=== PATIENT | female | born 1960 | race American Indian/Alaskan Native ===

== ENCOUNTER 2017-06-12 05:46 | Emergency (ER) | payer MEDICAID ==
--- NOTE | 2017-06-12 08:04 | Emergency Department Report ---
ED Psych HPI - General Chief Complaint: Psych Stated Complaint: SUICIDAL THOUGHTS,MH EVAL Time Seen by Provider: 06/12/17 08:02 Source: patient, RN notes reviewed Limitations: No Limitations - History of Present Illness Initial Comments: This is a 56-year-old female, her primary care doctor is Dr. Mccullough Patient presents to the ER with a complaint of suicidality. She was torn to traffic or kill herself. She denies overdose. Denies headache, neck pain, chest pain, abdominal pain, shortness of breath, urinary symptoms. MD Complaint: suicidal ideation, feels depressed -: Gradual Associated Psychiatric Symptoms: none History of same: Yes Quality: constant Improves With: none Worsens With: none Associated Symptoms: denies other symptoms If Self Harm: admits thoughts of, has plan - Related Data Home Medications Medication Instructions Recorded Confirmed Last Taken Flovent 220 MCG/PUFF HFA 220 inh INHALATION DAILY 06/12/17 06/12/17 Unknown ISOSORBIDE MONOnitrate 30 mg PO DAILY 06/12/17 06/12/17 Unknown Prozac 30 mg PO DAILY 06/12/17 06/12/17 Unknown carBAMazepine [TEGretol] 400 mg PO BID 06/12/17 06/12/17 Unknown traZODone 50 mg PO HS 06/12/17 06/12/17 Unknown Allergies Allergy/AdvReac Type Severity Reaction Status Date / Time No Known Allergies Allergy Unverified 01/06/16 09:44 ED Review of Systems ROS: Stated complaint: SUICIDAL THOUGHTS,MH EVAL Other details as noted in HPI Constitutional: denies: fever Eyes: denies: vision change ENT: denies: epistaxis Respiratory: denies: cough Cardiovascular: denies: chest pain Gastrointestinal: denies: abdominal pain Genitourinary: denies: dysuria Psychiatric: suicidal thoughts ED Past Medical Hx - Medications Home Medications: Home Medications Medication Instructions Recorded Confirmed Last Taken Type Flovent 220 MCG/PUFF HFA 220 inh INHALATION DAILY 06/12/17 06/12/17 Unknown History ISOSORBIDE MONOnitrate 30 mg PO DAILY 06/12/17 06/12/17 Unknown History Prozac 30 mg PO DAILY 06/12/17 06/12/17 Unknown History carBAMazepine [TEGretol] 400 mg PO BID 06/12/17 06/12/17 Unknown History traZODone 50 mg PO HS 06/12/17 06/12/17 Unknown History ED Physical Exam - General General appearance: alert, in no apparent distress - Head Head exam: Present: atraumatic, normocephalic - Eye Eye exam: Present: normal appearance, PERRL, EOMI, other (visual acuity intact to finger counting, color perception, reading at a close distance). Absent: nystagmus - ENT ENT exam: Present: normal exam, normal orophraynx, mucous membranes moist, normal external ear exam - Neck Neck exam: Present: normal inspection, full ROM - Respiratory Respiratory exam: Present: normal lung sounds bilaterally. Absent: respiratory distress - Cardiovascular Cardiovascular Exam: Present: regular rate, normal rhythm, normal heart sounds. Absent: systolic murmur, diastolic murmur, rubs, gallop - GI/Abdominal GI/Abdominal exam: Present: soft, normal bowel sounds. Absent: distended, tenderness, guarding, rebound, rigid, pulsatile mass - Extremities Exam Extremities exam: Present: normal inspection, full ROM, normal capillary refill. Absent: pedal edema, joint swelling, calf tenderness - Back Exam Back exam: Present: normal inspection, full ROM. Absent: tenderness, CVA tenderness (R), paraspinal tenderness, vertebral tenderness - Neurological Exam Neurological exam: Present: alert, oriented X3, CN II-XII intact, normal gait. Absent: motor sensory deficit - Psychiatric Psychiatric exam: Present: suicidal ideation. Absent: homicidal ideation - Skin Skin exam: Present: warm, dry, intact, normal color. Absent: rash ED Course Vital Signs 06/12/17 06/12/17 08:09 11:12 Temperature 98.2 F Pulse Rate 87 Respiratory 16 18 Rate Blood Pressure 138/80 O2 Sat by Pulse 97 98 Oximetry ED Medical Decision Making - Lab Data Result diagrams: 06/12/17 08:13 06/12/17 08:13 Vital Signs 06/12/17 08:09 Temperature 98.2 F Pulse Rate 87 Respiratory 16 Rate Blood Pressure 138/80 O2 Sat by Pulse 97 Oximetry Lab Results 06/12/17 06/12/17 06/12/17 Range/Units 08:13 08:13 08:13 WBC 12.4 H (4.5-11.0) K/mm3 RBC 4.00 (3.65-5.03) M/mm3 Hgb 12.2 (10.1-14.3) gm/dl Hct 36.8 (30.3-42.9) % MCV 92 (79-97) fl MCH 31 (28-32) pg MCHC 33 (30-34) % RDW 13.7 (13.2-15.2) % Plt Count 189 (140-440) K/mm3 Sodium 142 (137-145) mmol/L Potassium 3.9 (3.6-5.0) mmol/L Chloride 106.0 (98-107) mmol/L Carbon Dioxide 20 L (22-30) mmol/L Anion Gap 20 mmol/L BUN 13 (7-17) mg/dL Creatinine 0.8 (0.7-1.2) mg/dL Estimated GFR > 60 ml/min BUN/Creatinine Ratio 16 % Glucose 68 (65-100) mg/dL Calcium 9.1 (8.4-10.2) mg/dL Total Creatine Kinase 141 H (30-135) units/L Urine Color (Yellow) Urine Turbidity (Clear) Urine pH (5.0-7.0) Ur Specific [place] (1.003-1.030) Urine Protein (Negative) mg/dL Urine Glucose (UA) (Negative) mg/dL Urine Ketones (Negative) mg/dL Urine Blood (Negative) Urine Nitrite (Negative) Urine Bilirubin (Negative) Urine Urobilinogen (<2.0) mg/dL Ur Leukocyte Esterase (Negative) Urine WBC (Auto) (0.0-6.0) /HPF Urine RBC (Auto) (0.0-6.0) /HPF U Epithel Cells (Auto) (0-13.0) /HPF Urine Bacteria (Auto) (Negative) /HPF Urine Mucus /HPF Salicylates < 0.3 L (2.8-20.0) mg/dL Urine Opiates Screen Urine Methadone Screen Acetaminophen (10.0-30.0) ug/mL Ur Barbiturates Screen Ur Phencyclidine Scrn Ur Amphetamines Screen U Benzodiazepines Scrn Urine Cocaine Screen U Marijuana (THC) Screen Drugs of Abuse Note Plasma/Serum Alcohol (0-0.07) gm% 06/12/17 06/12/17 06/12/17 Range/Units 08:13 08:13 Unknown WBC (4.5-11.0) K/mm3 RBC (3.65-5.03) M/mm3 Hgb (10.1-14.3) gm/dl Hct (30.3-42.9) % MCV (79-97) fl MCH (28-32) pg MCHC (30-34) % RDW (13.2-15.2) % Plt Count (140-440) K/mm3 Sodium (137-145) mmol/L Potassium (3.6-5.0) mmol/L Chloride (98-107) mmol/L Carbon Dioxide (22-30) mmol/L Anion Gap mmol/L BUN (7-17) mg/dL Creatinine (0.7-1.2) mg/dL Estimated GFR ml/min BUN/Creatinine Ratio % Glucose (65-100) mg/dL Calcium (8.4-10.2) mg/dL Total Creatine Kinase (30-135) units/L Urine Color Yellow (Yellow) Urine Turbidity Hazy (Clear) Urine pH 5.0 (5.0-7.0) Ur Specific [place] 1.014 (1.003-1.030) Urine Protein <15 mg/dl (Negative) mg/dL Urine Glucose (UA) Neg (Negative) mg/dL Urine Ketones Neg (Negative) mg/dL Urine Blood Sm (Negative) Urine Nitrite Pos (Negative) Urine Bilirubin Neg (Negative) Urine Urobilinogen 2.0 (<2.0) mg/dL Ur Leukocyte Esterase Mod (Negative) Urine WBC (Auto) 31.0 H (0.0-6.0) /HPF Urine RBC (Auto) 1.0 (0.0-6.0) /HPF U Epithel Cells (Auto) 1.0 (0-13.0) /HPF Urine Bacteria (Auto) 1+ (Negative) /HPF Urine Mucus Few /HPF Salicylates (2.8-20.0) mg/dL Urine Opiates Screen Urine Methadone Screen Acetaminophen < 15.0 (10.0-30.0) ug/mL Ur Barbiturates Screen Ur Phencyclidine Scrn Ur Amphetamines Screen U Benzodiazepines Scrn Urine Cocaine Screen U Marijuana (THC) Screen Drugs of Abuse Note Plasma/Serum Alcohol < 0.01 (0-0.07) gm% 06/12/17 Range/Units Unknown WBC (4.5-11.0) K/mm3 RBC (3.65-5.03) M/mm3 Hgb (10.1-14.3) gm/dl Hct (30.3-42.9) % MCV (79-97) fl MCH (28-32) pg MCHC (30-34) % RDW (13.2-15.2) % Plt Count (140-440) K/mm3 Sodium (137-145) mmol/L Potassium (3.6-5.0) mmol/L Chloride (98-107) mmol/L Carbon Dioxide (22-30) mmol/L Anion Gap mmol/L BUN (7-17) mg/dL Creatinine (0.7-1.2) mg/dL Estimated GFR ml/min BUN/Creatinine Ratio % Glucose (65-100) mg/dL Calcium (8.4-10.2) mg/dL Total Creatine Kinase (30-135) units/L Urine Color (Yellow) Urine Turbidity (Clear) Urine pH (5.0-7.0) Ur Specific [place] (1.003-1.030) Urine Protein (Negative) mg/dL Urine Glucose (UA) (Negative) mg/dL Urine Ketones (Negative) mg/dL Urine Blood (Negative) Urine Nitrite (Negative) Urine Bilirubin (Negative) Urine Urobilinogen (<2.0) mg/dL Ur Leukocyte Esterase (Negative) Urine WBC (Auto) (0.0-6.0) /HPF Urine RBC (Auto) (0.0-6.0) /HPF U Epithel Cells (Auto) (0-13.0) /HPF Urine Bacteria (Auto) (Negative) /HPF Urine Mucus /HPF Salicylates (2.8-20.0) mg/dL Urine Opiates Screen Presumptive negative Urine Methadone Screen Presumptive negative Acetaminophen (10.0-30.0) ug/mL Ur Barbiturates Screen Presumptive negative Ur Phencyclidine Scrn Presumptive negative Ur Amphetamines Screen Presumptive negative U Benzodiazepines Scrn Presumptive negative Urine Cocaine Screen Presumptive positive U Marijuana (THC) Screen Presumptive negative Drugs of Abuse Note Disclamer Plasma/Serum Alcohol (0-0.07) gm% - Medical Decision Making Differential diagnosis, including but not limited to: Medical clearance for psychiatric placement, depression, overdose Assessment and plan: 56-year-old female who was suicidal with plan, has an unremarkable physical exam, neuro exam unremarkable and within normal limits, laboratory studies reviewed and are appreciated, may have a urinary tract infection, does not appear to be toxic, she will be given Macrobid, and her outpatient medications will be continued. This point in time, there does not appear to be in immediate medical complication to psychiatric admission, evaluation and consultation, requests he was informed. Critical care attestation.: If time is entered above; I have spent that time in minutes in the direct care of this critically ill patient, excluding procedure time. ED Disposition Clinical Impression: Medical clearance for psychiatric admission Disposition: DC/TX-65 PSY HOSP/PSY UNIT Is pt being admited?: No Does the pt Need Aspirin: No Condition: Good Referrals: PRIMARY CARE, [Primary Care Provider] - 3-5 Days
[2017-06-12 08:53] LABS: Hematocrit 36.8 % (30.3-42.9); Hemoglobin 12.2 gm/dl (10.1-14.3); Mean Corpuscular HGB Conc 33 % (30-34); Mean Corpuscular Hemoglobin 31 pg (28-32); Mean Corpuscular Volume 92 fl (79-97); Red Cell Distribution Width 13.7 % (13.2-15.2)
[2017-06-12 09:06] LABS: BUN/Creatinine Ratio 16; Blood Urea Nitrogen 13 mg/dL (7-17); Calcium 9.1 mg/dL (8.4-10.2); Hemolysis Index 26
[2017-06-12 10:03] LABS: Platelet Count 189 K/mm3 (140-440)
[2017-06-12 10:11] LABS: Bacteria,Urine 1+ /HPF (Negative); Bilirubin,Urine NEG (Negative); Blood,Urine SM (Negative); Color,Urine Yellow (Yellow); Mucus,Urine FEW /HPF; Nitrite,Urine POS (Negative); Protein,Urine <15 mg/dL mg/dL (Negative)
[2017-06-12 10:20] LABS: Amphetamine Screen,Urine PRESUMPTIVE NEGATIVE; Benzodiazepines Screen,Urine PRESUMPTIVE NEGATIVE; Cannabinoid Screen,Urine PRESUMPTIVE NEGATIVE; Methadone Screen,Urine PRESUMPTIVE NEGATIVE; Opiate Screen,Urine PRESUMPTIVE NEGATIVE
[2017-06-12 10:32] LABS: Cocaine Screen,Urine PRESUMPTIVE POSITIVE
[2017-06-12] MEDS ORDERED: ZOFRAN ODT PO PRN (11:52)
[2017-06-12] MEDS ORDERED: PROAIR IH PRN (11:52)
[2017-06-12] MEDS ORDERED: HALDOL IM PRN (11:52)
[2017-06-12] MEDS ORDERED: ATIVAN IM PRN (11:52)
[2017-06-12] MEDS ORDERED: FLOVENT INHALATION SCH (12:00)
[2017-06-12] MEDS: MACROBID PO SCH ×2 (18:13→22:10)
[2017-06-12] MEDS: PROzac PO SCH ×2 (18:14→18:17)
[2017-06-12] MEDS: IMDUR PO SCH (18:16)
[2017-06-12] MEDS: TYLENOL PO PRN ×2 (18:25→22:05)
[2017-06-12] MEDS: PULMICORT IH SCH (20:22)
[2017-06-12] MEDS ORDERED: NON-FORMULARY (Trazodone 50 MG) PO SCH (22:00)
[2017-06-12] MEDS: DESYREL PO SCH (22:10)
[2017-06-13] MEDS: TYLENOL PO PRN ×2 (04:45→22:54)
[2017-06-13] MEDS: PULMICORT IH SCH ×2 (08:48→22:38)
[2017-06-13] MEDS: PROzac PO SCH ×2 (10:16)
[2017-06-13] MEDS: IMDUR PO SCH (10:16)
[2017-06-13] MEDS: MACROBID PO SCH ×2 (10:16→22:53)
[2017-06-13] MEDS: DESYREL PO SCH (22:53)
[2017-06-14] MEDS: PULMICORT IH SCH (10:01)
--- NOTE | 2017-06-14 12:37 | Consultation ---
History of Present Illness - Reason for Consult Consult date: 06/14/17 Reason for consult: Mental Health Evaluation Requesting physician: BRITTNEE TENA - Chief Complaint Chief complaint: "I don't want to kill myself' - History of Present Psychiatric Illness 56 y.o. AA female presenting to [facility] for SI's with a plan. Today patient is calm and cooperative during the assessment. She stated that she was thinking about how "bad' her life is, so she decided to kill herself prior to coming to the hospital. She would not say how she would kill herself when asked. She stated that she was in a coma and experienced a stroke in 1995. She stated these things has caused her to be "depressed" because she cannot take care of herself like she would like. She stated that she have a home care service ([facility] ) come to her home 7 days a week to help her out. She stated prior to her admission, she used cocaine and was drinking alcohol to self medicate (her first time). She stated that her current medications (Trazodone/Prozac) isn't "working." She denies SI/HI's and AVH's. She denies any manic episodes. She admitted to erratic sleep the last 3 days. Medications and Allergies Allergies Allergy/AdvReac Type Severity Reaction Status Date / Time No Known Allergies Allergy Unverified 01/06/16 09:44 Home Medications Medication Instructions Recorded Confirmed Last Taken Type Flovent 220 MCG/PUFF HFA 220 inh INHALATION DAILY 06/12/17 06/12/17 Unknown History ISOSORBIDE MONOnitrate 30 mg PO DAILY 06/12/17 06/12/17 Unknown History Prozac 30 mg PO DAILY 06/12/17 06/12/17 Unknown History carBAMazepine [TEGretol] 400 mg PO BID 06/12/17 06/12/17 Unknown History traZODone 50 mg PO HS 06/12/17 06/12/17 Unknown History Active Meds: Active Medications Acetaminophen (Tylenol) 650 mg PO Q6HR PRN PRN Reason: Pain Last Admin: 06/13/17 22:54 Dose: 650 mg Albuterol (Proair) 2 puff IH Q4HRT PRN PRN Reason: Shortness Of Breath Budesonide (Pulmicort) 0.5 mg IH Q12HRT SARAH Last Admin: 06/14/17 10:01 Dose: 0.5 mg Carbamazepine (Tegretol) 400 mg PO BID [facility] Last Admin: 06/13/17 22:53 Dose: 400 mg Fluoxetine HCl (Prozac) 10 mg PO QDAY [facility] Last Admin: 06/13/17 10:16 Dose: 10 mg Fluoxetine HCl (Prozac) 20 mg PO QDAY [facility] Last Admin: 06/13/17 10:16 Dose: 20 mg Haloperidol Lactate (Haldol) 5 mg IM Q6HR PRN PRN Reason: Agitation Isosorbide Mononitrate (Imdur) 30 mg PO DAILY [facility] Last Admin: 06/13/17 10:16 Dose: Not Given Lorazepam (Ativan) 2 mg IM Q4HR PRN PRN Reason: Agitation Nitrofurantoin Macrocrystals (Macrobid) 100 mg PO BID [facility] Stop: 06/18/17 22:01 Last Admin: 06/13/17 22:53 Dose: 100 mg Ondansetron HCl (Zofran Odt) 4 mg PO Q6HR PRN PRN Reason: Nausea Trazodone HCl (Desyrel) 50 mg PO QHS [facility] Last Admin: 06/13/17 22:53 Dose: 50 mg Mental Status Exam - Vital signs Last Vital Signs Temp 98.5 F 06/13/17 20:00 Pulse 75 06/14/17 10:12 Resp 18 06/14/17 10:12 BP 122/69 06/13/17 20:00 Pulse Ox 99 06/13/17 21:16 - Exam Narrative exam: MSE: Appearance: calm, cooperative Behavior: good eye contact Speech: regular rate and tone Mood: "okay" Affect: congruent to mood Thought Process: circumstantial Thought Content: denies SI/HI's and AVH's Motor Activity: ambulatory Cognition: A/O x3 Insight: variable Judgment: variable Results Result Diagrams: 06/12/17 08:13 06/12/17 08:13 All other labs normal. Assessment and Plan Assessment and plan: Impression: MDD, Severe Type recurrent. Today patient is calm and cooperative during the assessment. Patient positive for cocaine. DDx: R/O Bipolar DO, R/O Substance Induced Mood DO Recommendation/Plan: Continue 1013 with placement to [facility] today.
[2017-06-14] MEDS: IMDUR PO SCH (14:47)
[2017-06-14] MEDS: PROzac PO SCH ×2 (14:48→14:49)
[2017-06-14] MEDS: MACROBID PO SCH (14:48)
[2017-06-14 14:50] VITALS: BP 134/72
== END 2017-06-14 17:35 ==
LOC: EEVIPCON 05:46 → ED 05:46
DX: R45.851 Suicidal ideations (principal)
CPT/HCPCS: 36415; 80048; 80307; 81001; 82550; 85027; 94640; 99285; G0480; 80320

== ENCOUNTER 2018-06-21 10:11 | Outpatient (CLI) | payer MEDICAID ==
[2018-06-21 10:52] LABS: Blood Urea Nitrogen 17 mg/dL (7-17)
--- NOTE | 2018-06-22 08:10 | Magnetic Resonance Report ---
MRI LUMBAR SPINE WITH AND WITHOUT CONTRAST HISTORY: Low back pain. TECHNIQUE: axial T1, T2. sagittal T1,T2, STIR. Post contrast T1 fat sat and axial and sagittal planes. COMPARISON: None at this facility. FINDINGS: The conus terminates at T12. No signal abnormality or mass. The cauda equina is within normal limits. 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 The posterior elements are in appropriate relationship. Moderate multilevel hypertrophic facet arthropathy is identified. Mild diffuse thickening of the ligamentum flavum. There is normal height and alignment of the lumbar vertebral bodies. No evidence for fracture, bone lesion or abnormal enhancement following IV contrast. Mild diffuse disc desiccation is evident. There is moderate disc space narrowing at L5-S1. L1-2: No significant abnormality. L2-3: No significant abnormality. L3-4: No significant abnormality with the disc. Moderate facet arthropathy and mild hypertrophy of the ligamentum flavum are identified. No central canal narrowing. Bilateral neural foraminal narrowing is less than 25%. L4-5: A mild diffuse posterior bulging disc is identified. Moderate hypertrophic facet arthropathy and moderate thickening of the ligamentum flavum is evident. This results in mild central canal stenosis measuring 8-9 mm in AP dimension. There is moderate bilateral neural foraminal narrowing estimated at 50-75%. L5-S1: Moderate disc space narrowing and mild diffuse posterior bulging disc is identified. Mild facet arthropathy. Bilateral neuroforaminal narrowing is estimated at 50%. IMPRESSION: [id number] lumbar spondylosis as outlined above. L4-5 appears to be the most affected level. No evidence for fracture, malalignment or enhancing bone lesion.
== END 2018-06-21 10:12 | disposition home or self-care (01) ==
LOC: MRI 10:11
PROVIDERS: ATTEND General Practice
DX: M47.896 Other spondylosis, lumbar region (principal); M48.07 Spinal stenosis, lumbosacral region; M51.27 Other intervertebral disc displacement, lumbosacral region
CPT/HCPCS: 36415; 72158; 82565; 84520; A9577

== ENCOUNTER 2018-08-02 12:59 | Outpatient (CLI) | payer MEDICAID ==
--- NOTE | 2018-08-02 19:57 | Cat Scan Report ---
FINAL REPORT EXAM: CT LUMBAR SPINE WO CON HISTORY: LOW BACK PAIN TECHNIQUE: CT lumbar spine without contrast. Study performed with multiplanar reconstructions PRIORS: None. FINDINGS: There is disc space narrowing and vacuum disc at L5-S1. Facet joint arthropathy present from L3-L4 through L5-S1 At L3-L4 through L5-S1 this results in moderate central canal stenosis most prominent at L4-5. Neural foraminal narrowing is most prominent bilaterally at L5-S1 due to bony encroachment and probable bul ging disc. Vertebral bodies are normal in height and alignment. Spinous processes and transverse processes are i ntact. IMPRESSION: Degenerative disc disease L5-S1 Facet joint arthropathy lower lumbar spine L3-L4 through L5-S1 with areas of moderate canal stenosis. Bilateral neural foraminal stenosis at L5-S1
== END 2018-08-02 13:00 | disposition home or self-care (01) ==
LOC: CT 12:59
PROVIDERS: ATTEND General Practice
DX: M51.37 Other intervertebral disc degeneration, lumbosacral region (principal); M48.07 Spinal stenosis, lumbosacral region; M46.86 Other specified inflammatory spondylopathies, lumbar region; Z87.891 Personal history of nicotine dependence
CPT/HCPCS: 72131

== ENCOUNTER 2018-12-21 13:27 | Emergency (ER) | payer MEDICAID ==
--- NOTE | 2018-12-21 13:47 | Emergency Department Report ---
Blank Doc - Documentation Documentation: This is a 58-year-old female that presents with a "knot" to left upper breast area. This initial assessment/diagnostic orders/clinical plan/treatment(s) is/are subject to change based on patient's health status, clinical progression and re- assessment by fellow clinical providers in the ED. Further treatment and workup at subsequent clinical providers discretion. Patient/guardians urged not to elope from the ED as their condition may be serious if not clinically assessed and managed. Initial orders include: 1- Patient sent to [facility] for further evaluation and treatment
[2018-12-21 13:51] VITALS: BP 112/67
--- NOTE | 2018-12-21 15:03 | Emergency Department Report ---
- General Chief complaint: Skin/Abscess/Foreign Body Stated complaint: PT FEEL KNOT IN CHEST Time Seen by Provider: 12/21/18 13:46 Source: patient Mode of arrival: Ambulatory Limitations: No Limitations - History of Present Illness Initial comments: 58-year-old Eliza female presents to the emergency room for stating she has a knot to her left upper chest that's been there for 4 days. Patient reports mild pain. Patient denies any other concerns no fever no chills or nausea no vomiting no redness or swelling to the area. Onset/Timin -: days(s) Location: chest Severity: mild Severity scale (0 -10): 1 Quality: aching Consistency: intermittent Worsens with: palpation Associated symptoms: denies other symptoms - Related Data Home Medications Medication Instructions Recorded Confirmed Last Taken Flovent 220 MCG/PUFF HFA 220 inh INHALATION DAILY 06/12/17 06/12/17 Unknown ISOSORBIDE MONOnitrate 30 mg PO DAILY 06/12/17 06/12/17 Unknown Prozac 30 mg PO DAILY 06/12/17 06/12/17 Unknown carBAMazepine [TEGretol] 400 mg PO BID 06/12/17 06/12/17 Unknown traZODone 50 mg PO HS 06/12/17 06/12/17 Unknown Allergies Allergy/AdvReac Type Severity Reaction Status Date / Time No Known Allergies Allergy Unverified 01/06/16 09:44 Abscess Boil HPI - HPI Chief Complaint: Skin/Abscess/Foreign Body Stated Complaint: PT FEEL KNOT IN CHEST Time Seen by Provider: 12/21/18 13:46 Home Medications: Home Medications Medication Instructions Recorded Confirmed Last Taken Flovent 220 MCG/PUFF HFA 220 inh INHALATION DAILY 06/12/17 06/12/17 Unknown ISOSORBIDE MONOnitrate 30 mg PO DAILY 06/12/17 06/12/17 Unknown Prozac 30 mg PO DAILY 06/12/17 06/12/17 Unknown carBAMazepine [TEGretol] 400 mg PO BID 06/12/17 06/12/17 Unknown traZODone 50 mg PO HS 06/12/17 06/12/17 Unknown Allergies/Adverse Reactions: Allergies Allergy/AdvReac Type Severity Reaction Status Date / Time No Known Allergies Allergy Unverified 01/06/16 09:44 ED Review of Systems ROS: Stated complaint: PT FEEL KNOT IN CHEST Other details as noted in HPI ED Past Medical Hx - Past Medical History Previous Medical History?: Yes Hx Diabetes: Yes Hx Arthritis: Yes Hx COPD: Yes - Social History Smoking Status: Former Smoker Substance Use Type: None - Medications Home Medications: Home Medications Medication Instructions Recorded Confirmed Last Taken Type Flovent 220 MCG/PUFF HFA 220 inh INHALATION DAILY 06/12/17 06/12/17 Unknown History ISOSORBIDE MONOnitrate 30 mg PO DAILY 06/12/17 06/12/17 Unknown History Prozac 30 mg PO DAILY 06/12/17 06/12/17 Unknown History carBAMazepine [TEGretol] 400 mg PO BID 06/12/17 06/12/17 Unknown History traZODone 50 mg PO HS 06/12/17 06/12/17 Unknown History ED Physical Exam - General Limitations: No Limitations General appearance: alert, in no apparent distress - Head Head exam: Present: atraumatic, normocephalic - ENT ENT exam: Present: mucous membranes moist - Respiratory Respiratory exam: Present: other (right upper chest P size mobile nodule felt.) ED Course Vital Signs 12/21/18 13:49 Temperature 98.9 F Pulse Rate 76 Respiratory 16 Rate Blood Pressure 112/67 [Left] O2 Sat by Pulse 96 Oximetry ED Medical Decision Making - Medical Decision Making 58-year-old female comes in for complaint of a knot to her left upper chest. Knot is a pea size mobile. Critical care attestation.: If time is entered above; I have spent that time in minutes in the direct care of this critically ill patient, excluding procedure time. ED Disposition Clinical Impression: Mass of left chest wall Disposition: DC-01 TO HOME OR SELFCARE Is pt being admited?: No Does the pt Need Aspirin: No Condition: Stable Additional Instructions: Please follow up with her primary care provider to discuss and have your upper left chest not evaluated. You can take [id number] Tylenol and/or Motrin for pain management. Referrals: Your, Provider [Other] - 3-5 Days
== END 2018-12-21 15:11 | disposition home or self-care (01) ==
LOC: ED 13:27
DX: R22.2 Localized swelling, mass and lump, trunk (principal); E11.9 Type 2 diabetes mellitus without complications; M19.90 Unspecified osteoarthritis, unspecified site; J44.9 Chronic obstructive pulmonary disease, unspecified; Z87.891 Personal history of nicotine dependence; Z79.899 Other long term (current) drug therapy
CPT/HCPCS: 99282

== ENCOUNTER 2019-03-16 12:52 | Outpatient (CLI) | payer MEDICAID ==
--- NOTE | 2019-03-16 13:53 | Ultrasound Report ---
LEFT DIGITAL DIAGNOSTIC MAMMOGRAM CLINICAL: For clip placement after ultrasound guided needle biopsy. COMPARISON: [facility] mammogram and ultrasound from 01/03/2019 FINDINGS: A biopsy clip is identified at 12:00 far posterior and correlates with the biopsied lesion. IMPRESSION: Concordant clip deployment. Signer Name: Rhett Sharp MD Signed: 03/16/2019 1:49 PM Workstation Name: [id number]
--- NOTE | 2019-03-16 14:04 | Mammography Report ---
LEFT DIGITAL DIAGNOSTIC MAMMOGRAM CLINICAL: For clip placement after ultrasound guided needle biopsy. COMPARISON: [facility] mammogram and ultrasound from 01/03/2019 FINDINGS: A biopsy clip is identified far posterior at 12:00 and correlates with the biopsied lesion. IMPRESSION: Concordant clip deployment. Signer Name: Rhett Sharp MD Signed: 03/16/2019 2:00 PM Workstation Name: [id number]
== END 2019-03-16 12:53 | disposition home or self-care (01) ==
LOC: SPVWC 12:52
PROVIDERS: ATTEND Surgery
DX: N63.0 Unspecified lump in unspecified breast (principal)
CPT/HCPCS: 19083; 77065; 88305; 88312; 88342; A4648

== ENCOUNTER 2019-04-13 09:54 | Outpatient (CLI) | payer MEDICAID ==
--- NOTE | 2019-04-17 14:03 | Magnetic Resonance Report ---
BILATERAL BREAST MR WITHOUT AND WITH GADOLINIUM INDICATION: Status post recent benign biopsy of the left breast for a palpable lump which she has fe lt for 4 months. College E: Benign fibrofatty tissues with chronic inflammation and nondefinitive gra nulomata. COMPARISONS: 03/16/2019 and 01/03/2019 mammograms TECHNIQUE: Axial 1.0 mm T1 without, axial high-resolution 2.0 mm T2 and axial 1.0 mm dynamic vibrant high-resolution postcontrast T1 fat saturation sequences on a 1.5 Janae magnet. The examination was p erformed with an 8-channel dedicated [place] breast coil. Post-processing with CAD and subtraction was performed on an [employer] workstation. 19.0 cc of MultiHance was injected without incident for the c ontrast portion of the exam. Consent was obtained prior to the administration of the contrast. FINDINGS: RIGHT BREAST: Minimal background parenchymal enhancement. No mass or suspicious enhancement. No suspi cious right axillary or right internal mammary lymph nodes. LEFT BREAST: Minimal background parenchymal enhancement. A 1 cm minimally enhancing mass at 11:00 rick roximately 20 cm from the nipple corresponds to the recently biopsied lesion. It demonstrates 4 mm fo cus of central enhancement and demonstrates mixed kinetics with 89% peak enhancement, 56% type I pers istent and 44% type II plateau waveforms. No suspicious left axillary or left internal mammary lymph nodes. A few benign upper outer intramammary lymph nodes. IMPRESSION: No suspicious finding. A benign 1 cm left breast mass at 11:00 approximately 20 cm from t he nipple. Recommend routine mammographic screening. BI-RADS Category 2: Benign Signer Name: Rhett Sharp MD Signed: 04/17/2019 1:58 PM Workstation Name: [id number]
== END 2019-04-13 09:55 | disposition home or self-care (01) ==
LOC: SPVIMAG 09:54
PROVIDERS: ATTEND Surgery
DX: N63.22 Unspecified lump in the left breast, upper inner quadrant (principal); J44.9 Chronic obstructive pulmonary disease, unspecified
CPT/HCPCS: A9577; C8908; 77049

== ENCOUNTER 2019-04-19 08:39 | Outpatient (CLI) | payer MEDICAID | END 2019-04-19 08:40 | disposition home or self-care (01) | LOC: LABHHL 08:39 | PROVIDERS: ATTEND Surgery | DX: N63.0 Unspecified lump in unspecified breast (principal); M19.90 Unspecified osteoarthritis, unspecified site; J44.9 Chronic obstructive pulmonary disease, unspecified | CPT/HCPCS: 88305 ==

== ENCOUNTER 2019-04-25 13:39 | Outpatient (CLI) | payer MEDICAID ==
--- NOTE | 2019-04-25 15:16 | Mammography Report ---
LEFT DIGITAL DIAGNOSTIC MAMMOGRAM CLINICAL: For clip placement after needle biopsy. COMPARISON: 03/16/2019 FINDINGS: A second biopsy clip is identified in the upper breast adjacent to the previously identifie d clip. IMPRESSION: Concordant clip deployment. Signer Name: Rhett Sharp MD Signed: 04/25/2019 3:12 PM Workstation Name: [id number]
== END 2019-04-25 13:40 | disposition home or self-care (01) ==
LOC: SPVWC 13:39
PROVIDERS: ATTEND Surgery
DX: N63.22 Unspecified lump in the left breast, upper inner quadrant (principal); J44.9 Chronic obstructive pulmonary disease, unspecified; M19.90 Unspecified osteoarthritis, unspecified site; Z87.891 Personal history of nicotine dependence

== ENCOUNTER 2020-01-02 13:34 | Outpatient (CLI) | payer MEDICAID ==
--- NOTE | 2020-01-03 09:00 | Mammography Report ---
DIGITAL SCREENING MAMMOGRAM WITH CAD, 01/02/2020 INDICATION: Routine screening mammography. TECHNIQUE: Digital bilateral 2D mammography was obtained in the craniocaudal and mediolateral obliq ue projections. This examination was interpreted with the benefit of Computer-Aided Detection analysi s. COMPARISON: 04/25/2019, 04/13/2019, 03/16/2019 FINDINGS: Breast Density: The breasts are almost entirely fatty. There is no evidence of dominant mass, suspicious calcifications or architectural distortion in eithe r breast. Clips are seen in the 12:00 position of the posterior depth of the left breast. IMPRESSION: Follow up recommendation: Routine yearly BI-RADS Category 1: Negative. A "normal" or negative report should not discourage follow up or biopsy of a clinically significant f inding. A written summary of these findings will be mailed to the patient. The patient will be entered into a mammography reporting system which will generate a reminder letter for the patient's next appointmen t at the appropriate interval. The [employer] recommends yearly mammograms starting at age 40 and continuing as l arpan as a woman is in good health. Breast MRI is recommended for women with an approximate 20-25% or greater lifetime risk of breast cancer, including women with a strong family history of breast or ova jamison cancer or who have been treated for Hodgkin's disease. Signer Name: Dash Sam MD Signed: 01/03/2020 8:55 AM Workstation Name: [email or web address]
== END 2020-01-02 13:35 | disposition home or self-care (01) ==
LOC: SPVWC 13:34
PROVIDERS: ATTEND Surgery
DX: Z12.31 Encounter for screening mammogram for malignant neoplasm of breast (principal); N64.89 Other specified disorders of breast
CPT/HCPCS: 77067

== ENCOUNTER 2020-12-23 03:32 | Emergency (ER) | payer MEDICAID ==
--- NOTE | 2020-12-23 08:08 | Emergency Department Report ---
ED General Adult HPI - General Chief complaint: Back Pain/Injury Stated complaint: NECK/LOWER BACK PAIN PUI?: No Time Seen by Provider: 12/23/20 07:57 Source: patient, RN notes reviewed, old records reviewed Mode of arrival: Ambulatory Limitations: No Limitations - History of Present Illness Initial comments: Primary CARE doctor: Dr. Karuna Varela The patient is a 60-year-old female, with a history of COPD, not oxygen dependent, body mass index of 41, psychiatric disease, chronic pain, had CT scan, MRI at this hospital in the past, which demonstrated DJD. The patient presents to the ER today with a complaint of nontraumatic paracervical neck pain, that radiates down her back, to her paralumbar region, with involvement in the right groin. There is no fever, no vomiting, no diaphoresis, no loss of taste or smell, she completed her Covid vaccination, she has a chronic cough which is not a new, worsened or different, she denies extremity weakness/numbness, denies bladder/bowel retention and incontinence, as well as saddle anesthesia. Her pain is throbbing and aching, increases with palpation and range of motion, ambulation, and decreases with rest and position. She reports that she recently went to [facility], had a CAT scan of her abdomen pelvis which was unremarkable, and "said everything was okay", she reports being discharged with hydrocodone. The patient does not have her current pain specialist that she sees. She reports that she previously had lumbar ablation, a few years ago. She is not currently participating in physical therapy. She lives at home with a friend. There is one set of stairs. She ambulates with a cane. Her pain in the emergency room is improved with hydromorphone, acetaminophen, as well as ketorolac. She denies urinary symptoms. She denies abdominal pain. During the history and physical examination, I am chaperoned by nurse Micah Denis -: Sudden, days(s), week(s) Location: back Radiation: other (Paralumbar region, and right groin) Quality: burning, aching Consistency: constant Improves with: medication, rest Worsens with: movement - Related Data Home Medications Medication Instructions Recorded Confirmed Last Taken Flovent 220 MCG/PUFF HFA 220 inh INHALATION DAILY 06/12/17 06/12/17 Unknown ISOSORBIDE MONOnitrate 30 mg PO DAILY 06/12/17 06/12/17 Unknown Prozac 30 mg PO DAILY 06/12/17 06/12/17 Unknown carBAMazepine [TEGretol] 400 mg PO BID 06/12/17 06/12/17 Unknown traZODone 50 mg PO HS 06/12/17 06/12/17 Unknown Previous Rx's Medication Instructions Recorded Last Taken Type Acetaminophen [Non-Aspirin Extra 500 mg PO Q6HR PRN #30 tablet 12/23/20 Unknown Rx Strength] Ibuprofen [Motrin] 600 mg PO Q8H PRN #30 tablet 12/23/20 Unknown Rx Allergies Allergy/AdvReac Type Severity Reaction Status Date / Time No Known Allergies Allergy Verified 12/23/20 08:03 ED Review of Systems ROS: Stated complaint: NECK/LOWER BACK PAIN Other details as noted in HPI Constitutional: denies: fever Eyes: denies: eye discharge ENT: denies: epistaxis Respiratory: cough (Chronic cough) Cardiovascular: denies: chest pain Genitourinary: denies: dysuria Musculoskeletal: back pain, myalgia Neurological: denies: weakness Psychiatric: anxiety ED Past Medical Hx - Past Medical History Hx Hypertension: Yes Hx CVA: Yes (1995) Hx Diabetes: Yes Hx Arthritis: Yes Hx COPD: Yes - Surgical History Additional Surgical History: gallstones; ectopic - Social History Smoking Status: Former Smoker Substance Use Type: None - Medications Home Medications: Home Medications Medication Instructions Recorded Confirmed Last Taken Type Flovent 220 MCG/PUFF HFA 220 inh INHALATION DAILY 06/12/17 06/12/17 Unknown History ISOSORBIDE MONOnitrate 30 mg PO DAILY 06/12/17 06/12/17 Unknown History Prozac 30 mg PO DAILY 06/12/17 06/12/17 Unknown History carBAMazepine [TEGretol] 400 mg PO BID 06/12/17 06/12/17 Unknown History traZODone 50 mg PO HS 06/12/17 06/12/17 Unknown History Acetaminophen [Non-Aspirin Extra 500 mg PO Q6HR PRN #30 tablet 12/23/20 Unknown Rx Strength] Ibuprofen [Motrin] 600 mg PO Q8H PRN #30 tablet 12/23/20 Unknown Rx ED Physical Exam - General Limitations: No Limitations General appearance: alert, anxious, obese - Head Head exam: Present: atraumatic, normocephalic - Eye Eye exam: Present: normal appearance, EOMI. Absent: nystagmus - ENT ENT exam: Present: normal exam, normal orophraynx, mucous membranes moist, normal external ear exam - Neck Neck exam: Present: normal inspection, full ROM. Absent: tenderness, meningismus - Respiratory Respiratory exam: Present: normal lung sounds bilaterally. Absent: respiratory distress, wheezes, rales, rhonchi, stridor, decreased breath sounds - Cardiovascular Cardiovascular Exam: Present: regular rate, normal rhythm, normal heart sounds. Absent: bradycardia, tachycardia, irregular rhythm, systolic murmur, diastolic murmur, rubs, gallop - GI/Abdominal GI/Abdominal exam: Present: soft. Absent: distended, tenderness, guarding, rebound, rigid, pulsatile mass - Extremities Exam Extremities exam: Present: normal inspection, full ROM, other (2+ pulses noted in the bilateral upper and lower extremities. There is no palpable cord. negative Homans sign. Muscular compartments are soft. The pelvis is stable.). Absent: pedal edema, calf tenderness - Back Exam Back exam: Present: normal inspection. Absent: tenderness, CVA tenderness (R), CVA tenderness (L), paraspinal tenderness, vertebral tenderness - Neurological Exam Neurological exam: Present: alert, oriented X3, normal gait, reflexes normal (2+ quadriceps reflexes bilaterally. 2+ biceps reflexes bilaterally. Downgoing plantar reflexes bilaterally. Sensation intact to light touch and pinch in 4 extremities), other (No facial droop. Tongue midline. Extraocular movements intact bilaterally. Facial sensation intact to light touch in V1, V2, V3 distribution bilaterally. 5 and a 5 strength in 4 extremities. Sensation intact to light touch in 4 extremities.). Absent: motor sensory deficit - Psychiatric Psychiatric exam: Present: anxious - Skin Skin exam: Present: warm, dry, intact, normal color. Absent: rash ED Course Vital Signs 12/23/20 12/23/20 12/23/20 03:58 07:51 07:52 Temperature 99.0 F Pulse Rate 76 Respiratory 16 Rate Blood Pressure 126/78 117/77 Blood Pressure [Left] O2 Sat by Pulse 98 99 99 Oximetry 12/23/20 12/23/20 12/23/20 07:54 07:56 07:58 Temperature Pulse Rate Respiratory Rate Blood Pressure 117/77 117/77 117/77 Blood Pressure [Left] O2 Sat by Pulse 99 99 99 Oximetry 12/23/20 12/23/20 12/23/20 07:59 08:02 08:32 Temperature Pulse Rate 69 Respiratory Rate Blood Pressure 117/77 117/77 Blood Pressure [Left] O2 Sat by Pulse 98 Oximetry 12/23/20 12/23/20 12/23/20 09:00 09:30 10:00 Temperature Pulse Rate Respiratory Rate Blood Pressure 154/100 154/100 154/100 Blood Pressure [Left] O2 Sat by Pulse 100 100 100 Oximetry 12/23/20 10:21 Temperature Pulse Rate Respiratory Rate Blood Pressure Blood Pressure 154/100 [Left] O2 Sat by Pulse 100 Oximetry - Reevaluation(s) Reevaluation #1: 12/23/20 09:23 5 out of 5 strength in 4 extremities. No saddle anesthesia. No bladder or bowel retention or incontinence. Ambulatory with a steady gait. Strength, sensation, reflexes within normal limit. No pulsatile abdominal mass 12/23/20 10:30 Final reassessment. Feels improved. Patient endorses readiness for discharge. Neurovascular exam unchanged. Have reiterated outpatient discharge instructions. ED Medical Decision Making - Lab Data Vital Signs 12/23/20 12/23/20 12/23/20 03:58 07:51 07:52 Temperature 99.0 F Pulse Rate 76 Respiratory 16 Rate Blood Pressure 126/78 117/77 O2 Sat by Pulse 98 99 99 Oximetry 12/23/20 12/23/20 12/23/20 07:54 07:56 07:58 Temperature Pulse Rate Respiratory Rate Blood Pressure 117/77 117/77 117/77 O2 Sat by Pulse 99 99 99 Oximetry 12/23/20 12/23/20 07:59 08:02 Temperature Pulse Rate 69 Respiratory Rate Blood Pressure 117/77 O2 Sat by Pulse 98 Oximetry - Radiology Data Radiology results: report reviewed, image reviewed Previous MRI, CT lumbar spine reviewed and appreciated XR hip 2-3V RT INDICATION / CLINICAL INFORMATION: right groin pain. COMPARISON: None available. FINDINGS: BONES/JOINT(S): No acute fracture or subluxation. Mild bilateral hip DJD. No focal bone lesions. SOFT TISSUES: No significant abnormality. ADDITIONAL FINDINGS: None. Signer Name: Hu Henriquez MD Signed: 12/23/2020 8:51 AM Workstation Name: [id number] [facility] [address] [place] [address] Magnetic Resonance Report Signed Patient: JUAN STOUT MR#: [id number] : 1960 Acct:[id number] Age/Sex: 57 / F ADM Date: 06/21/18 Loc: MRI Attending Dr: KVNG ASHTON MD Ordering Physician: KVNG ASHTON DO Date of Service: 06/21/18 Procedure(s): MR lumbar spine wo/w con Accession Number(s): [id number] cc: KVNG ASHTON DO MRI LUMBAR SPINE WITH AND WITHOUT CONTRAST HISTORY: Low back pain. TECHNIQUE: axial T1, T2. sagittal T1,T2, STIR. Post contrast T1 fat sat and axial and sagittal planes. COMPARISON: None at this facility. FINDINGS: The conus terminates at T12. No signal abnormality or mass. The cauda equina is within normal limits. 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 The posterior elements are in appropriate relationship. Moderate multilevel hypertrophic facet arthropathy is identified. Mild diffuse thickening of the ligamentum flavum. There is normal height and alignment of the lumbar vertebral bodies. No evidence for fracture, bone lesion or abnormal enhancement following IV contrast. Mild diffuse disc desiccation is evident. There is moderate disc space narrowing at L5-S1. L1-2: No significant abnormality. L2-3: No significant abnormality. L3-4: No significant abnormality with the disc. Moderate facet arthropathy and mild hypertrophy of the ligamentum flavum are identified. No central canal narrowing. Bilateral neural foraminal narrowing is less than 25%. L4-5: A mild diffuse posterior bulging disc is identified. Moderate hypertrophic facet arthropathy and moderate thickening of the ligamentum flavum is evident. This results in mild central canal stenosis measuring 8-9 mm in AP dimension. There is moderate bilateral neural foraminal narrowing estimated at 50-75%. L5- S1: Moderate disc space narrowing and mild diffuse posterior bulging disc is france ntified. Mild facet arthropathy. Bilateral neuroforaminal narrowing is estimated at 50%. IMPRESSION: Hodk-py-kxqngbpy lumbar spondylosis as outlined above. L4-5 appears to be the most affected level. No evidence for fracture, malalignment or enhancing bone lesion. Transcribed By: TTR Dictated By: PIPE DESAI JR, MD Electronically Authenticated By: PIPE DESAI JR, MD Signed Date/Time: 06/22/18807 DD/ 1 TD/TT: 06/22/18807 [facility] [address] [id number] Cat Scan Report Signed Patient: JUAN STOUT MR#: [id number] : 1960 Acct:[id number] Age/Sex: 57 / F ADM Date: 08/02/18 Loc: CT Attending Dr: KVNG ASHTON MD Ordering Physician: KVNG ASHTON DO Date of Service: 08/02/18 Procedure(s): CT lumbar spine wo con Accession Number(s): [id number] cc: KVNG ASHTON DO FINAL REPORT EXAM: CT LUMBAR SPINE WO CON HISTORY: LOW BACK PAIN TECHNIQUE: CT lumbar spine without contrast. Study performed with multiplanar reconstructions PRIORS: None. FINDINGS: There is disc space narrowing and vacuum disc at L5-S1. Facet joint arthropathy present from L3-L4 through L5-S1 At L3-L4 through L5-S1 this results in moderate central canal stenosis most prominent at L4-5. Neural foraminal narrowing is most prominent bilaterally at L5-S1 due to bony encroachment and probable bulging disc. Vertebral bodies are normal in height and alignment. Spinous processes and transverse processes are intact. IMPRESSION: Degenerative disc disease L5-S1 Facet joint arthropathy lower lumbar spine L3-L4 through L5-S1 with areas of moderate canal stenosis. Bilateral neural foraminal stenosis at L5-S1 Transcribed By: JDK Dictated By: LESLEY CARNES MD Electronically Authenticated By: LESLEY CARNES MD Signed Date/Time: 08/02/181956 DD/ 55 TD/TT: 08/02/181955 - Medical Decision Making Differential diagnosis, including but not limited to: Musculoskeletal pain, radiculopathy, arthritis, body mass index 41, obesity, deconditioning, soft tissue injury, sprain, strain Assessment and plan: 60-year-old female, who was afebrile, with reassuring vital signs, who ambulates with a steady gait, with no focal extremity weakness or numbness, reports having had CT scan abdomen pelvis recently which was negative for acute findings, at [facility], likely presenting with exacerbation of chronic musculoskeletal pain. She denies urinary symptoms. Her pain is reproducible. She denies intravenous drug use. There is no erythema, warmth, or midline spinal tenderness on examination. She does pain that is reproducible with passive and active range of motion. Extensive discussion had with patient regarding natural history of obesity, arthritis, DJD. Would not treat with outpatient narcotics at this time. She will be given compassionate one-time hydromorphone dose while here in the emergency room, in addition to ketorolac, and acetaminophen. Counseled to consider outpatient follow-up with physical therapy, occupational therapy, pain specialist, as well as to perform weight loss. She may also benefit from complementary therapies, such as massage, acupuncture, aquatic therapy. I have discussed this plan of care with patient. She has articulated understanding. She felt improved after the aforementioned interventions On examination, the skin overlying the right groin has no redness, pus, streaking or tenderness, there are appropriate pulses in the upper and lower extremities. She ambulates with a steady gait. This is unlikely to be fracture and/or dislocation. X-ray of the hip and pelvis will be obtained. We have requested CT scan abdomen pelvis and medical records from [facility]. Critical care attestation.: If time is entered above; I have spent that time in minutes in the direct care of this critically ill patient, excluding procedure time. ED Disposition Clinical Impression: Right groin pain, Body mass index (BMI) of 40.1 to 44.9 in adult, Lumbar spondylosis Lower back pain Qualifiers: Chronicity: chronic Back pain laterality: right Sciatica presence: unspecified whether sciatica present Qualified Code(s): M54.5 - Low back pain; G89.29 - Other chronic pain Disposition: DC-01 TO HOME OR SELFCARE Is pt being admited?: No Does the pt Need Aspirin: No Condition: Good Instructions: BMI for Adults, Chronic Back Pain Additional Instructions: As we discussed, patient likely experiencing chronic musculoskeletal pain, and arthritic pain/DJD from known bony disease. Recommend that patient lose weight, exercise as tolerated, she may consider alternative/complementary therapies, such as massage, acupuncture, and/or nonweightbearing aquatic therapy. Patient may take the prescribed pain medications as needed and directed. Patient may also alternate ice packs and heat packs as needed for physical pain. We would recommend outpatient physical therapy, to improve underlying symptomatology, your primary care doctor should be able to set this up for you. Your primary care doctor can also refer you to an outpatient pain specialist. Patient may also google/look up online pain specialists in her network. The patient may also benefit from outpatient spinal/neurosurgical consultation, Dr. Rascon is a local neurosurgeon. Please return to the emergency room right away with new pain, worsened pain, migration of pain, projectile vomiting, change in mental status, confusion, inability tolerate liquid feeds, extremity weakness, bladder or bowel retention/incontinence, anesthesia over the rectum/genitals, or any new, worsened or different symptoms not present on the initial ER evaluation. Prescriptions: Ibuprofen [Motrin] 600 mg PO Q8H PRN #30 tablet PRN Reason: Pain Acetaminophen [Non-Aspirin Extra Strength] 500 mg PO Q6HR PRN #30 tablet PRN Reason: Pain , Severe (7-10) Referrals: IVETT OCASIO MD [Primary Care Provider] - 3-5 Days JEAN PAUL RASCON II, MD [Staff Physician] - 3-5 Days
[2020-12-23] MEDS ORDERED: KETOROLAC 30 MG/1 ML INJ IM ONE (08:39)
[2020-12-23] MEDS ORDERED: HYDROmorphone 1 MG/1 ML INJ IM ONE (08:39)
[2020-12-23] MEDS ORDERED: ACETAMINOPHEN 500 MG TAB PO ONE (08:39)
--- NOTE | 2020-12-23 09:55 | XRay Report ---
XR hip 2-3V RT INDICATION / CLINICAL INFORMATION: right groin pain. COMPARISON: None available. FINDINGS: BONES/JOINT(S): No acute fracture or subluxation. Mild bilateral hip DJD. No focal bone lesions. SOFT TISSUES: No significant abnormality. ADDITIONAL FINDINGS: None. Signer Name: Hu Henriquez MD Signed: 12/23/2020 9:51 AM Workstation Name: [id number]
[2020-12-23 10:21] VITALS: BP 154/100
== END 2020-12-23 11:15 | disposition home or self-care (01) ==
LOC: ED 03:32
DX: R10.31 Right lower quadrant pain (principal); M47.896 Other spondylosis, lumbar region; M54.5 Low back pain; I10 Essential (primary) hypertension; E11.8 Type 2 diabetes mellitus with unspecified complications; M19.90 Unspecified osteoarthritis, unspecified site; J44.9 Chronic obstructive pulmonary disease, unspecified; Z98.890 Other specified postprocedural states
CPT/HCPCS: 73502; 96372; 99284; J1170; J1885; 99283

== ENCOUNTER 2021-02-05 12:53 | Outpatient (CLI) | payer MEDICAID ==
--- NOTE | 2021-02-05 16:45 | Magnetic Resonance Report ---
MRI CERVICAL SPINE WITHOUT CONTRAST INDICATION / CLINICAL INFORMATION: CERVICALGIA, RT SHOULDER & NECK PAIN, DDD. TECHNIQUE: Multisequence, multiplanar images of the cervical spine were obtained. COMPARISON: None available. FINDINGS: CRANIOCERVICAL JUNCTION:No significant abnormality. ALIGNMENT: No significant abnormality. VERTEBRAE:Normal marrow signal and vertebral body height for age. VISUALIZED SPINAL CORD: No significant abnormality. [id number]-[id number] ANALYSIS: C2-3: No significant disc abnormality, spinal canal stenosis, or neural foraminal stenosis. C3-4: No significant disc abnormality, spinal canal stenosis, or neural foraminal stenosis. C4-5: No significant disc abnormality, spinal canal stenosis, or neural foraminal stenosis. C5-6: No significant disc abnormality, spinal canal stenosis, or neural foraminal stenosis. C6-7: No significant disc abnormality, spinal canal stenosis, or neural foraminal stenosis. C7-T1: No significant disc abnormality, spinal canal stenosis, or neural foraminal stenosis. PARASPINAL SOFT TISSUES: No significant abnormality. ADDITIONAL FINDINGS: None. IMPRESSION: No focal disc herniation, spinal canal stenosis or nerve root compression. Signer Name: Irene Kiran MD Signed: 02/05/2021 4:40 PM Workstation Name: [email or web address]
== END 2021-02-05 12:54 | disposition home or self-care (01) ==
LOC: MRI 12:53
PROVIDERS: ATTEND Physical Medicine & Rehabilitation
DX: M54.2 Cervicalgia (principal)
CPT/HCPCS: 72141

== ENCOUNTER 2021-06-24 13:02 | Outpatient (CLI) | payer MEDICAID ==
--- NOTE | 2021-06-24 15:30 | XRay Report ---
XR shoulder 2+V LT INDICATION / CLINICAL INFORMATION: PAIN IN BOTH SHOULDERS. COMPARISON: None available. FINDINGS: BONES/JOINT(S): No acute fracture or subluxation. Mild DJD in the glenohumeral joint. SOFT TISSUES: No significant abnormality. ADDITIONAL FINDINGS: None. Signer Name: Hu Henriquez MD Signed: 06/24/2021 3:24 PM Workstation Name: [id number]
--- NOTE | 2021-06-24 15:31 | XRay Report ---
XR shoulder 2+V RT INDICATION / CLINICAL INFORMATION: PAIN IN BOTH SHOULDERS. COMPARISON: None available. FINDINGS: BONES/JOINT(S): No acute fracture or subluxation. Mild DJD in the glenohumeral joint and AC joint. SOFT TISSUES: No significant abnormality. ADDITIONAL FINDINGS: None. Signer Name: Hu Henriquez MD Signed: 06/24/2021 3:24 PM Workstation Name: [id number]
== END 2021-06-24 13:03 | disposition home or self-care (01) ==
LOC: XRAY 13:02
PROVIDERS: ATTEND Physical Medicine & Rehabilitation
DX: M19.012 Primary osteoarthritis, left shoulder (principal); M19.011 Primary osteoarthritis, right shoulder

== ENCOUNTER 2021-12-10 06:36 | Emergency (ER) | payer MEDICAID ==
[2021-12-10 07:33] VITALS: BP 114/84
[2021-12-10] MEDS ORDERED: oxyCODONE /ACETAMINOPHEN 5-325MG TAB PO ONE (07:51)
--- NOTE | 2021-12-10 08:24 | XRay Report ---
RIGHT FOOT 3 VIEW(S) INDICATION / CLINICAL INFORMATION: fall, foot pain COMPARISON: None available. FINDINGS: BONES / JOINT(S): There is a essentially nondisplaced fracture of the proximal aspect of the second m etatarsal. There is mild cortical irregularity in the proximal aspects of the third and fourth metata rsals do not see a definite fracture on these radiographs in this location. Prior bunionectomy right great toe is noted. There is slight narrowing of the great toe MTP joint. There is mild degenerative change in the tarsal metatarsal joints. There is subjective osteopenia. There is a screw-plate device in the distal fibula. SOFT TISSUES: No significant abnormality. ADDITIONAL FINDINGS: None. Signer Name: Juan Kulkarni MD Signed: 12/10/2021 8:20 AM Workstation Name: [id number]
--- NOTE | 2021-12-10 10:39 | Cat Scan Report ---
CT HEAD/BRAIN WO CON INDICATION / CLINICAL INFORMATION: 61 years Female; fall, head injury. TECHNIQUE: Routine CT head without contrast. All CT scans at this location are performed using CT dos e reduction for ALARA by means of automated exposure control. COMPARISON: None. FINDINGS: BRAIN / INTRACRANIAL CONTENTS: No acute hemorrhage, mass effect, midline shift, hydrocephalus, or acu te, large territorial infarct. Mild cerebral and cerebellar atrophy. There are mild areas of decreased attenuation in the white matter of the cerebral hemispheres. These are nonspecific findings and may be related to microangiopathy (hypertension, diabetes, atheroscleros is), given the patient's age. It might be difficult to evaluate for small areas of ischemia without d iffusion imaging by MRI. CRANIOCERVICAL JUNCTION: No significant abnormality. ORBITS: No significant abnormality of visualized orbits. SINUSES / MASTOIDS: Visualized paranasal sinuses and mastoid air cells are essentially clear. ADDITIONAL FINDINGS: There appears to be anterior dislocation at both temporomandibular joints. No as sociated fracture is appreciated. The chronicity of this is unclear. Please correlate with the patie nt. IMPRESSION: 1. No acute intracranial abnormality. 2. Mild volume loss and chronic white matter changes. 3. Question anterior dislocation at both TMJs. See above. Signer Name: Davidson Swanson Jr, MD Signed: 12/10/2021 10:35 AM Workstation Name: [id number]
--- NOTE | 2021-12-10 10:43 | Cat Scan Report ---
CT CERVICAL SPINE WITHOUT CONTRAST INDICATION: fall, neck pain. TECHNIQUE: Axial imaging performed through the cervical spine without the use of contrast. Sagittal and coronal reconstructed images were also reviewed. All CT scans at this location are performed us ing CT dose reduction for ALARA by means of automated exposure control. COMPARISON: None FINDINGS: Alignment: Spinal alignment is normal. Bones: There is no acute osseous abnormality. Mild discogenic DJD is identified at C4-5 and C5-6. T he remaining levels are within normal limits. The facet joints are unremarkable. Soft tissues: No acute or significant incidental soft tissue abnormality. IMPRESSION: No acute abnormality. Mild degenerative changes at C4-5 and C5-6. Signer Name: Davidson Swanson Jr, MD Signed: 12/10/2021 10:39 AM Workstation Name: [id number]
--- NOTE | 2021-12-10 11:07 | Emergency Department Report ---
ED Fall HPI - General Chief Complaint: Fall Stated Complaint: RIGHT ANKLE PAIN Time Seen by Provider: 12/10/21 07:32 Source: patient Mode of arrival: Stretcher - History of Present Illness Initial Comments: 61-year-old black female presents to the emergency department for evaluation after a fall. She states that she tripped while attempting to walk to the bathroom this morning in the dark. She denies loss of consciousness but states that she did hit her head and neck and twisted her right foot. She presents with headache, neck pain, and right foot pain. -: Sudden, This morning Fall From: standing When Fall Occurred: 1-3 hours [employer] Fall Witnessed: no Place Fall Occurred: home Loss of Consciousness: none Prolonged Down Time?: no Symptoms Prior to Fall: none Location: head, neck Location - Extremities: Right: Foot Severity: severe Severity scale (0 -10): 10 Quality: aching Context: tripped/slipped Associated Symptoms: headache, neck pain, unable to walk. denies: numbness, weakness, chest paint, shortness of breath, hematuria, lightheaded, vertigo, confusion - Related Data Home Medications Medication Instructions Recorded Confirmed Last Taken Flovent 220 MCG/PUFF HFA 220 inh INHALATION DAILY 06/12/17 12/10/21 Unknown ISOSORBIDE MONOnitrate 30 mg PO DAILY 06/12/17 12/10/21 Unknown Prozac 20 mg PO QDAY 06/12/17 12/10/21 Unknown carBAMazepine [TEGretol] 400 mg PO BID 06/12/17 12/10/21 Unknown Previous Rx's Medication Instructions Recorded Last Taken Type Acetaminophen/Codeine [Tylenol 1 tab PO Q6H PRN #12 tab 12/10/21 Unknown Rx /Codeine # 3 tab] Cyclobenzaprine [Flexeril] 10 mg PO TID PRN #30 tab 12/10/21 Unknown Rx Naproxen [Naprosyn] 500 mg PO BID 7 Days #14 tab 12/10/21 Unknown Rx Allergies Allergy/AdvReac Type Severity Reaction Status Date / Time No Known Allergies Allergy Verified 12/10/21 07:26 ED Review of Systems ROS: Stated complaint: RIGHT ANKLE PAIN Other details as noted in HPI Comment: All other systems reviewed and negative Constitutional: denies: chills, fever Eyes: denies: eye discharge, vision change ENT: denies: hearing loss, congestion Respiratory: denies: cough, shortness of breath, SOB with exertion, SOB at rest Cardiovascular: denies: chest pain, palpitations Gastrointestinal: denies: abdominal pain, nausea, vomiting Genitourinary: denies: urgency, dysuria Musculoskeletal: denies: back pain Skin: denies: rash, lesions Neurological: denies: headache, weakness ED Past Medical Hx - Past Medical History Hx Hypertension: Yes Hx CVA: Yes (1995) Hx Diabetes: Yes Hx Arthritis: Yes Hx COPD: Yes - Surgical History Additional Surgical History: gallstones; ectopic - Social History Smoking Status: Former Smoker Substance Use Type: None - Medications Home Medications: Home Medications Medication Instructions Recorded Confirmed Last Taken Type Flovent 220 MCG/PUFF HFA 220 inh INHALATION DAILY 06/12/17 12/10/21 Unknown History ISOSORBIDE MONOnitrate 30 mg PO DAILY 06/12/17 12/10/21 Unknown History Prozac 20 mg PO QDAY 06/12/17 12/10/21 Unknown History carBAMazepine [TEGretol] 400 mg PO BID 06/12/17 12/10/21 Unknown History Acetaminophen/Codeine [Tylenol 1 tab PO Q6H PRN #12 tab 12/10/21 Unknown Rx /Codeine # 3 tab] Cyclobenzaprine [Flexeril] 10 mg PO TID PRN #30 tab 12/10/21 Unknown Rx Naproxen [Naprosyn] 500 mg PO BID 7 Days #14 tab 12/10/21 Unknown Rx ED Physical Exam - General Limitations: No Limitations General appearance: alert, in no apparent distress - Head Head exam: Present: atraumatic, normocephalic - Eye Eye exam: Present: normal appearance. Absent: conjunctival injection - Neck Neck exam: Present: normal inspection (Midline vertebral tenderness noted), tenderness. Absent: full ROM, lymphadenopathy - Respiratory Respiratory exam: Present: normal lung sounds bilaterally. Absent: respiratory distress, wheezes, rales, rhonchi, stridor, chest wall tenderness - Cardiovascular Cardiovascular Exam: Present: regular rate, normal heart sounds - GI/Abdominal GI/Abdominal exam: Present: soft, normal bowel sounds. Absent: distended, tenderness, guarding, rebound, rigid - Extremities Exam Extremities exam: Present: normal inspection - Expanded Lower Extremity Exam Right Lower Leg exam: Present: normal inspection Ankle exam: Present: normal inspection Foot/Toe exam: Present: tenderness, swelling. Absent: normal inspection, deformity, crepidus, dislocation, erythema, calcaneal tenderness, tenderness at base of 5th metatarsal, nail avulsion, subungual hematoma Neuro vascular tendon exam: Present: no vascular compromise. Absent: pulse deficit, abnormal cap refill, motor deficit, sensory deficit, tendon deficit, extremity cold to touch, pallor Gait: Positive: unable to bear weight - Back Exam Back exam: Present: normal inspection. Absent: vertebral tenderness - Neurological Exam Neurological exam: Present: alert, oriented X3 - Psychiatric Psychiatric exam: Present: normal affect, normal mood - Skin Skin exam: Present: warm, dry, intact, normal color ED Course Vital Signs 12/10/21 12/10/21 06:41 07:32 Temperature 98.2 F 98.9 F Pulse Rate 90 79 Respiratory 18 16 Rate Blood Pressure 180/90 114/84 [Right] O2 Sat by Pulse 95 97 Oximetry - Orthopedic Splinting/Casting Injury #1 Side: right Lower Extremity Injury Location: foot Lower Extremity Immobilizer: posterior splint (Posterior short leg) Other Orthopedic Equipment: walker Additional Comments: CMS intact after application. Patient tolerated well. ED Medical Decision Making - Radiology Data Radiology results: report reviewed, image reviewed Right foot x-ray: FINDINGS: BONES / JOINT(S): There is a essentially nondisplaced fracture of the proximal aspect of the second metatarsal. There is mild cortical irregularity in the proximal aspects of the third and fourth metatarsals do not see a definite fracture on these radiographs in this location. Prior bunionectomy right great toe is noted. There is slight narrowing of the great toe MTP joint. There is mild degenerative change in the tarsal metatarsal joints. There is subjective osteopenia. There is a screw-plate device in the distal fibula. SOFT TISSUES: No significant abnormality. ADDITIONAL FINDINGS: None. . CT scan of head without contrast: FINDINGS: BRAIN / INTRACRANIAL CONTENTS: No acute hemorrhage, mass effect, midline shift, hydrocephalus, or acute, large territorial infarct. Mild cerebral and cerebellar atrophy. There are mild areas of decreased attenuation in the white matter of the cerebral hemispheres. These are nonspecific findings and may be related to microangiopathy (hypertension, diabetes, atherosclerosis), given the patient's age. It might be difficult to evaluate for small areas of ischemia without diffusion imaging by MRI. CRANIOCERVICAL JUNCTION: No significant abnormality. ORBITS: No significant abnormality of visualized orbits. SINUSES / MASTOIDS: Visualized paranasal sinuses and mastoid air cells are essentially clear. ADDITIONAL FINDINGS: There appears to be anterior dislocation at both temporomandibular joints. No associated fracture is appreciated. The chronicity of this is unclear. Please correlate with the patient. IMPRESSION: 1. No acute intracranial abnormality. 2. Mild volume loss and chronic white matter changes. 3. Question anterior dislocation at both TMJs. See above. CT scan of cervical spine without contrast: FINDINGS: Alignment: Spinal alignment is normal. Bones: There is no acute osseous abnormality. Mild discogenic DJD is identified at C4-5 and C5-6. The remaining levels are within normal limits. The facet joints are unremarkable. Soft tissues: No acute or significant incidental soft tissue abnormality. IMPRESSION: No acute abnormality. Mild degenerative changes at C4-5 and C5-6. - Medical Decision Making 61-year-old black female presents to the emergency department for evaluation after a fall. She states that she tripped while attempting to walk to the bathroom this morning in the dark. She denies loss of consciousness but states that she did hit her head and neck and twisted her right foot. She presents with headache, neck pain, and right foot pain. CT head and cervical spine without any acute abnormalities noted. Right foot x- ray positive for nondisplaced metatarsal fracture. Patient placed in posterior short leg splint and discharged home in wheelchair. She refused crutches stating that she will think she could walk on them. She is advised to maintain nonweightbearing and follow-up with orthopedics for further evaluation and management. She is advised to return to the emergency department for any concerns. She verbalizes understanding of and agreement with plan of care. Critical care attestation.: If time is entered above; I have spent that time in minutes in the direct care of this critically ill patient, excluding procedure time. ED Disposition Clinical Impression: Neck pain Fall Qualifiers: Encounter type: initial encounter Qualified Code(s): W19.XXXA - Unspecified fall, initial encounter Metatarsal fracture Qualifiers: Encounter type: initial encounter Metatarsal bone: second Fracture type: closed Fracture alignment: nondisplaced Laterality: right Qualified Code(s): S92.324A - Nondisplaced fracture of second metatarsal bone, right foot, initial encounter for closed fracture Head injury Qualifiers: Encounter type: initial encounter Qualified Code(s): S09.90XA - Unspecified injury of head, initial encounter Disposition: HOME / SELF CARE / HOMELESS Is pt being admited?: No Does the pt Need Aspirin: No Condition: Stable Instructions: Metatarsal Fracture Rehab-SportsMed, Head Injury, Adult, [id number], Cervical Sprain, [id number], Metatarsal Fracture, Cast or Splint Care, Adult Additional Instructions: Take medications as prescribed. Follow up with orthopedics for further evaluation and management. Return to ED as needed. Prescriptions: Cyclobenzaprine [Flexeril] 10 mg PO TID PRN #30 tab PRN Reason: Muscle Spasm Naproxen [Naprosyn] 500 mg PO BID 7 Days #14 tab Acetaminophen/Codeine [Tylenol /Codeine # 3 tab] 1 tab PO Q6H PRN #12 tab PRN Reason: Pain , Severe (7-10) Referrals: CARYN POSADAS MD [Staff Physician] - 3-5 Days Time of Disposition: 11:26
== END 2021-12-10 13:32 | disposition home or self-care (01) ==
LOC: ED 06:36
DX: S92.321A Displaced fracture of second metatarsal bone, right foot, initial encounter for closed fracture (principal); S09.90XA Unspecified injury of head, initial encounter; M54.2 Cervicalgia; I10 Essential (primary) hypertension; Z86.73 Personal history of transient ischemic attack (TIA), and cerebral infarction without residual deficits; E11.9 Type 2 diabetes mellitus without complications; M19.90 Unspecified osteoarthritis, unspecified site; J44.9 Chronic obstructive pulmonary disease, unspecified; Z98.890 Other specified postprocedural states; Z87.891 Personal history of nicotine dependence; W19.XXXA Unspecified fall, initial encounter; Y93.89 Activity, other specified; Y92.89 Other specified places as the place of occurrence of the external cause; Y99.8 Other external cause status
CPT/HCPCS: 70450; 72125; 99284

== ENCOUNTER 2022-02-20 14:26 | Emergency (ER) | payer MEDICAID ==
[2022-02-20 14:39] VITALS: BP 138/90
[2022-02-20] MEDS ORDERED: diphenhydrAMINE 25 MG/10 ML ORAL LIQUID PO ONE (16:12)
[2022-02-20] MEDS ORDERED: dexAMETHasone 4 MG/ML VIAL IM ONE (16:12)
--- NOTE | 2022-02-20 16:32 | Emergency Department Report ---
- General Chief complaint: Skin/Abscess/Foreign Body Stated complaint: SPOTS ON ARM AND BREAST Time Seen by Provider: 02/20/22 15:34 Source: patient Mode of arrival: Ambulatory Limitations: No Limitations - History of Present Illness Initial comments: 61-year-old black female presents the emergency department for evaluation of rash to bilateral breast and right arm. She states that she has had a rash to area for the past several days and rash has noted to be pruritic but denies drainage, erythema, or edema. She states that she has been taking Benadryl with minimal improvement. MD complaint: rash -: Gradual, week(s) (1) Location: chest (Bilateral top of breast), RUE Severity scale (0 -10): 0 Consistency: constant Associated symptoms: itching Treatments Prior to Arrival: Benadryl - Related Data Home Medications Medication Instructions Recorded Confirmed Last Taken Flovent 220 MCG/PUFF HFA 220 inh INHALATION DAILY 06/12/17 12/10/21 Unknown ISOSORBIDE MONOnitrate 30 mg PO DAILY 06/12/17 12/10/21 Unknown Prozac 20 mg PO QDAY 06/12/17 12/10/21 Unknown carBAMazepine [TEGretol] 400 mg PO BID 06/12/17 12/10/21 Unknown Previous Rx's Medication Instructions Recorded Last Taken Type Acetaminophen/Codeine [Tylenol 1 tab PO Q6H PRN #12 tab 12/10/21 Unknown Rx /Codeine # 3 tab] Cyclobenzaprine [Flexeril] 10 mg PO TID PRN #30 tab 12/10/21 Unknown Rx Naproxen [Naprosyn] 500 mg PO BID 7 Days #14 tab 12/10/21 Unknown Rx Calamine/Zinc 8-8% [Calamine] 1 applicatio TP BID #1 bottle 02/20/22 Unknown Rx Prednisone [predniSONE 10 mg 10 mg PO .TAPER #1 pack 02/20/22 Unknown Rx (6-Day Pack, 21 Tabs)] hydrOXYzine PAMOATE [Vistaril] 25 mg PO Q6HR PRN #30 capsule 02/20/22 Unknown Rx Allergies Allergy/AdvReac Type Severity Reaction Status Date / Time No Known Allergies Allergy Verified 02/20/22 14:40 Abscess Boil HPI - HPI Chief Complaint: Skin/Abscess/Foreign Body Stated Complaint: SPOTS ON ARM AND BREAST Time Seen by Provider: 02/20/22 15:34 Home Medications: Home Medications Medication Instructions Recorded Confirmed Last Taken Flovent 220 MCG/PUFF HFA 220 inh INHALATION DAILY 06/12/17 12/10/21 Unknown ISOSORBIDE MONOnitrate 30 mg PO DAILY 06/12/17 12/10/21 Unknown Prozac 20 mg PO QDAY 06/12/17 12/10/21 Unknown carBAMazepine [TEGretol] 400 mg PO BID 06/12/17 12/10/21 Unknown Previous Rx's Medication Instructions Recorded Last Taken Type Acetaminophen/Codeine [Tylenol 1 tab PO Q6H PRN #12 tab 12/10/21 Unknown Rx /Codeine # 3 tab] Cyclobenzaprine [Flexeril] 10 mg PO TID PRN #30 tab 12/10/21 Unknown Rx Naproxen [Naprosyn] 500 mg PO BID 7 Days #14 tab 12/10/21 Unknown Rx Calamine/Zinc 8-8% [Calamine] 1 applicatio TP BID #1 bottle 02/20/22 Unknown Rx Prednisone [predniSONE 10 mg 10 mg PO .TAPER #1 pack 02/20/22 Unknown Rx (6-Day Pack, 21 Tabs)] hydrOXYzine PAMOATE [Vistaril] 25 mg PO Q6HR PRN #30 capsule 02/20/22 Unknown Rx Allergies/Adverse Reactions: Allergies Allergy/AdvReac Type Severity Reaction Status Date / Time No Known Allergies Allergy Verified 02/20/22 14:40 ED Review of Systems ROS: Stated complaint: SPOTS ON ARM AND BREAST Other details as noted in HPI Comment: All other systems reviewed and negative Constitutional: denies: chills, fever Eyes: denies: vision change Respiratory: denies: shortness of breath Cardiovascular: denies: chest pain, palpitations Gastrointestinal: denies: abdominal pain, nausea Musculoskeletal: denies: back pain Skin: rash, pruritus Neurological: denies: headache, weakness ED Past Medical Hx - Past Medical History Hx Hypertension: Yes Hx CVA: Yes (1995) Hx Diabetes: Yes Hx Arthritis: Yes Hx COPD: Yes - Surgical History Additional Surgical History: gallstones; ectopic - Social History Smoking Status: Former Smoker Substance Use Type: None - Medications Home Medications: Home Medications Medication Instructions Recorded Confirmed Last Taken Type Flovent 220 MCG/PUFF HFA 220 inh INHALATION DAILY 06/12/17 12/10/21 Unknown History ISOSORBIDE MONOnitrate 30 mg PO DAILY 06/12/17 12/10/21 Unknown History Prozac 20 mg PO QDAY 06/12/17 12/10/21 Unknown History carBAMazepine [TEGretol] 400 mg PO BID 06/12/17 12/10/21 Unknown History Acetaminophen/Codeine [Tylenol 1 tab PO Q6H PRN #12 tab 12/10/21 Unknown Rx /Codeine # 3 tab] Cyclobenzaprine [Flexeril] 10 mg PO TID PRN #30 tab 12/10/21 Unknown Rx Naproxen [Naprosyn] 500 mg PO BID 7 Days #14 tab 12/10/21 Unknown Rx Calamine/Zinc 8-8% [Calamine] 1 applicatio TP BID #1 bottle 02/20/22 Unknown Rx Prednisone [predniSONE 10 mg 10 mg PO .TAPER #1 pack 02/20/22 Unknown Rx (6-Day Pack, 21 Tabs)] hydrOXYzine PAMOATE [Vistaril] 25 mg PO Q6HR PRN #30 capsule 02/20/22 Unknown Rx ED Physical Exam - General Limitations: No Limitations General appearance: alert, in no apparent distress - Head Head exam: Present: atraumatic, normocephalic - Eye Eye exam: Present: normal appearance. Absent: conjunctival injection - ENT ENT exam: Present: normal exam - Neck Neck exam: Present: normal inspection - Respiratory Respiratory exam: Present: normal lung sounds bilaterally. Absent: respiratory distress, chest wall tenderness - Cardiovascular Cardiovascular Exam: Present: regular rate, normal heart sounds - GI/Abdominal GI/Abdominal exam: Present: soft, normal bowel sounds. Absent: distended, t enderness - Expanded Upper Extremity Exam Right Forearm Wrist exam: Absent: normal inspection (Dry scaly pruritic rash), tenderness, swelling, erythema Vascular: Present: radial pulse. Absent: vascular compromise, Pallo - Back Exam Back exam: Present: normal inspection. Absent: CVA tenderness (R), CVA tenderness (L) - Neurological Exam Neurological exam: Present: alert, oriented X3 - Psychiatric Psychiatric exam: Present: normal affect, normal mood - Skin Skin exam: Present: warm, dry, intact, normal color, rash. Absent: erythema - Expanded Skin Exam Expanded Distribution of rash: chest (Top of bilateral breast), RUE Description of rash: Present: purpuic. Absent: tenderness, swelling, blisters, discharge ED Course Vital Signs 02/20/22 14:36 Temperature 98.2 F Pulse Rate 100 H Respiratory 20 Rate Blood Pressure 138/90 [Left] O2 Sat by Pulse 100 Oximetry ED Medical Decision Making - Medical Decision Making 61-year-old black female presents the emergency department for evaluation of rash to bilateral breast and right arm. She states that she has had a rash to area for the past several days and rash has noted to be pruritic but denies drainage, erythema, or edema. She states that she has been taking Benadryl with minimal improvement. Physical exam consistent with pruritic rash to bilateral breast and right upper arm. Patient will be discharged home with prednisone, Vistaril, and calamine lotion to use as directed. She is advised to follow-up with her primary care provider or dermatology if no improvement or worsening symptoms. She is advised to return to the emergency department as needed. She verbalizes understanding of and agreement with plan of care. Critical care attestation.: If time is entered above; I have spent that time in minutes in the direct care of this critically ill patient, excluding procedure time. ED Disposition Clinical Impression: Rash Disposition: 01 HOME / SELF CARE / HOMELESS Is pt being admited?: No Does the pt Need Aspirin: No Condition: Stable Instructions: Rash, Adult, [id number] Additional Instructions: Take medications as prescribed. Follow-up with your primary care provider or dermatology if no improvement or worsening symptoms. Return to the emergency department as needed. Prescriptions: Calamine/Zinc 8-8% [Calamine] 1 applicatio TP BID #1 bottle Prednisone [predniSONE 10 mg (6-Day Pack, 21 Tabs)] 10 mg PO .TAPER #1 pack hydrOXYzine PAMOATE [Vistaril] 25 mg PO Q6HR PRN #30 capsule PRN Reason: Itching Referrals: ROSELINE TAYLOR MD [Staff Physician] - 3-5 Days JEANNE VILLANUEVA MD [Staff Physician] - 3-5 Days Time of Disposition: 16:36
== END 2022-02-20 16:43 | disposition home or self-care (01) ==
LOC: ED 14:26
DX: R21 Rash and other nonspecific skin eruption (principal); I10 Essential (primary) hypertension; E11.9 Type 2 diabetes mellitus without complications; M19.90 Unspecified osteoarthritis, unspecified site; J44.1 Chronic obstructive pulmonary disease with (acute) exacerbation; Z86.73 Personal history of transient ischemic attack (TIA), and cerebral infarction without residual deficits; Z87.891 Personal history of nicotine dependence; Z79.899 Other long term (current) drug therapy
CPT/HCPCS: 96372; 99282; J1100; Q0163